=== PATIENT | male | born 1995 | race Caucasian/White ===

== ENCOUNTER 2016-07-18 14:48 | Emergency (ER) | payer MEDICAID ==
[~2016-07-18] VITALS: Ht 182.9 cm; Wt 67.0 kg
[~2016-07-18 14:48] MED LIST: ALBU17AE26
[2016-07-18] MEDS ORDERED: ACETAMINOPHEN 325MG TABLET PO ONE (18:30)
[2016-07-18] MEDS ORDERED: MORPHINE SULFATE 10 MG/ML CPJ IM ONE (19:30)
[2016-07-18 21:26] VITALS: BP 122/76
== END 2016-07-18 21:28 | disposition home or self-care (01) ==
LOC: ER 14:50
DX: R68.84 Jaw pain (principal); J45.909 Unspecified asthma, uncomplicated; Z88.0 Allergy status to penicillin; Z91.013 Allergy to seafood; Z79.899 Other long term (current) drug therapy
CPT/HCPCS: 70110; 70486; 96372; 99284; J2270

== ENCOUNTER 2016-11-10 20:48 | Emergency (ER) | payer MEDICAID ==
[~2016-11-10] VITALS: Ht 180.3 cm; Wt 64.0 kg
[2016-11-10 20:55] VITALS: BP 122/72
== END 2016-11-11 00:05 | disposition left against medical advice (07) ==
LOC: ER 20:48
DX: Z53.21 Procedure and treatment not carried out due to patient leaving prior to being seen by health care provider (principal)

== ENCOUNTER 2020-12-20 10:03 | Day surgery (SDC) | payer MEDICAID, OTHER ==
[~2020-12-20] VITALS: Ht 185.4 cm; Wt 84.0 kg
[2020-12-20 10:20] VITALS: BP 115/73
[2020-12-20] MEDS ORDERED: ONDANSETRON HCL 4MG/2ML INJ IV STA (11:09)
[2020-12-20] MEDS ORDERED: MORPHINE SULFATE 4 MG/ML CPJ (NOT FOR IM USE) IV STA (11:09)
[2020-12-20 11:39] LABS: HEMATOCRIT. 48.6 % (42.0-52.0); HEMOGLOBIN. 16.5 g/dL (14.0-18.0); MEAN CORPUSCULAR HEMOGLOBIN 30.6 pg (28.0-32.0); PLATELET 270 x1000/uL (130-400); RED CELL DISTRIBUTION WIDTH 13.2 % (11.6-14.6)
[2020-12-20 11:45] LABS: CHLORIDE 105 mEq/L (98-107)
[2020-12-20 11:48] LABS: PROTHROMBIN TIME 10.7 sec (9.6-11.0)
[2020-12-20 12:01] LABS: CLARITY URINE CLEAR (CLEAR); COLOR URINE YELLOW (YELLOW); KETONES URINE NEGATIVE (NEGATIVE); LEUKOCYTE ESTERASE URINE NEGATIVE (NEGATIVE); NITRITE URINE NEGATIVE (NEGATIVE); OCCULT BLOOD URINE NEGATIVE (NEGATIVE); PH URINE 5.5 (4.5-8.0); PROTEIN URINE NEGATIVE (NEGATIVE); UROBILINOGEN URINE 0.2 E.U./dL (0.2-1.0)
[2020-12-20 12:16] LABS: PLATELET ESTIMATE NORMAL
[2020-12-20] MEDS ORDERED: CEFOXITIN SODIUM 1 G in DEXTROSE 5% WATER 50 ML IV SCH ×2 (12:30→22:00)
[2020-12-20] MEDS ORDERED: CEFOXITIN 1G in DEXTROSE 5% WATER 50ML IV SCH (12:45)
[2020-12-20] MEDS ORDERED: DEXT 5% IV SCH (12:47)
[2020-12-20] MEDS ORDERED: CEFOXITIN SODIUM IV SCH (12:47)
[2020-12-20] MEDS ORDERED: WATER IV SCH (12:47)
[2020-12-20] MEDS ORDERED: MEPERIDINE HCL/PF 25MG/ML CPJ IV PRN ×2 (13:15)
[2020-12-20] MEDS ORDERED: ONDANSETRON HCL 4MG/2ML INJ IV PRN (13:15)
[2020-12-20] MEDS ORDERED: HYDROMORPHONE HCL/PF 2MG/ML CPJ IV PRN (13:15)
[2020-12-20] MEDS ORDERED: MORPHINE SULFATE 2 MG/ML CPJ (NOT FOR IM USE) IV PRN (13:15)
[2020-12-20] MEDS ORDERED: BUPIVACAINE HCL/PF 0.5% (5MG/ML) 10ML ONE ×2 (13:17→14:03)
[2020-12-20] MEDS ORDERED: SKIN ADHESIVE 0.7 GM EA TOP ONE (13:17)
[2020-12-20] MEDS ORDERED: ROCURONIUM BROMIDE 10MG/ML VIAL 5ML IV ONE (13:25)
[2020-12-20] MEDS ORDERED: SODIUM CHLORIDE 0.9% 10ML VIAL ONE (13:25)
[2020-12-20] MEDS ORDERED: CEFAZOLIN SODIUM 1000MG/VIAL ONE (13:25)
[2020-12-20] MEDS ORDERED: FENTANYL CITRATE/PF 50MCG/ML 2ML VIAL ONE ×2 (13:25→13:48)
[2020-12-20] MEDS ORDERED: NEOSTIGMINE METHYLSULFATE 1MG/ML 10 ML VIAL ONE (13:25)
[2020-12-20] MEDS ORDERED: MIDAZOLAM HCL 2 MG/2 ML VIAL ONE (13:25)
[2020-12-20] MEDS ORDERED: METOCLOPRAMIDE HCL 10MG/2ML VIAL ONE (13:25)
[2020-12-20] MEDS ORDERED: GLYCOPYRROLATE 0.2 MG/ML 2ML VIAL ONE (13:25)
[2020-12-20] MEDS ORDERED: PHENYLEPHRINE HCL 10 MG/ML 1ML (IV VIAL) IV ONE (13:25)
[2020-12-20] MEDS ORDERED: PROPOFOL 200MG/20ML VIAL IV ONE (13:25)
[2020-12-20] MEDS ORDERED: SUCCINYLCHOLINE CHLORIDE 200MG/10ML IV ONE (13:25)
[2020-12-20] MEDS ORDERED: SODIUM CHLORIDE 0.9% 1,000 ML IV ONE (13:30)
[2020-12-20] MEDS ORDERED: SODIUM CHLORIDE 0.9% 1,000 ML IV SCH (15:30)
[2020-12-20] MEDS ORDERED: DIPHENHYDRAMINE 50MG/ML VIAL IV PRN (15:30)
[2020-12-20] MEDS ORDERED: ONDANSETRON HCL 4MG/2ML INJ ONE (16:59)
== END 2020-12-20 17:30 | disposition home or self-care (01) ==
LOC: ER 10:03 → EDSTATUS 12:22 → ER 13:20 → ORIP 13:29 → UNDOADMIN 13:29 → OR 13:29 → EDBEDREQ 13:43 → EDBEDREQTM 13:44 → ER 13:52 → OR 17:30
PROVIDERS: ATTEND Internal Medicine
DX: K35.890 Other acute appendicitis without perforation or gangrene (principal); J45.909 Unspecified asthma, uncomplicated; Z88.0 Allergy status to penicillin; Z91.013 Allergy to seafood; Z98.890 Other specified postprocedural states; Z79.899 Other long term (current) drug therapy; Z20.822 Contact with and (suspected) exposure to COVID-19
CPT/HCPCS: 36415; 44970; 74176; 80053; 81003; 83690; 85025; 85610; 87426; 88304; 99291; J0330; J0690; J0694; J2250; J2405; J2704; J2710; J2765; J3010; J3490; J7060; J2370; J7030